=== PATIENT | male | born 1960 | race African-American/Black ===

== ENCOUNTER 2017-10-18 18:40 | Emergency (ER) | payer OTHER ==
[~2017-10-18] VITALS: Ht 177.8 cm; Wt 119.0 kg
[2017-10-18] MEDS ORDERED: OXYMETAZOLINE HCL NASAL SPRAY 15ML BOTHNSTRLS ONE (23:15)
[2017-10-18 23:46] LABS: BASOPHILS % 0.2 % (0.0-2.0); HEMATOCRIT. 39.8 % (42.0-52.0); HEMOGLOBIN. 13.7 g/dL (14.0-18.0); MEAN CORPUSCULAR HEMOGLOBIN 30.3 pg (28.0-32.0); MEAN PLATELET VOLUME 7.3 fl (7.4-10.4); MONOCYTES % 7.9 % (2.0-8.0); NEUTROPHILS % 70.9 % (40.0-76.0); PLATELET 285 x1000/uL (130-400); RED BLOOD CELL COUNT 4.52 mill/uL (4.7-6.1); RED CELL DISTRIBUTION WIDTH 13.9 % (11.6-14.6)
[2017-10-19 00:02] LABS: PARTIAL THROMBOPLASTIN TIME 40.6 sec (23.4-31.0)
[2017-10-19 00:05] VITALS: BP 167/101
[2017-10-19 00:07] LABS: INR 3.2; PROTHROMBIN TIME 33.4 sec (9.4-11.6)
== END 2017-10-19 01:04 | disposition home or self-care (01) ==
LOC: ER 18:50
DX: R04.0 Epistaxis (principal); I10 Essential (primary) hypertension; F10.20 Alcohol dependence, uncomplicated; Z79.01 Long term (current) use of anticoagulants
CPT/HCPCS: 36415; 85025; 85610; 85730; 99284; Z7610